=== PATIENT | female | born 1950 | race Caucasian/White ===

== ENCOUNTER 2016-12-27 22:23 | Observation (INO) | payer OTHER, MEDICAID ==
[~2016-12-27] VITALS: Ht 165.1 cm; Wt 54.0 kg
[2016-12-27 22:30] VITALS: BP 136/60; PULSE 136; PULSE 77; RESP 22; RESP 60; TEMP 97.6; O2SAT 96
--- NOTE | 2016-12-27 22:53 | PD ---
HPI Chief Complaint: Numbness/Tingling Time Seen by Provider: 22:45 Travel History International Travel<30 days: No Contact w/Intl Traveler<30days: No Traveled to known affect area: No History of Present Illness HPI 66-year-old female presents to the emergency department by police transport from custodial where she reportedly complained of left arm numbness and request an aspirin. Patient states she's in the process of being evaluated for left arm numbness. Patient states she is being followed by Dr. Geiger who is evaluating her for chronic neck pain with referred pain to the left upper extremity. Patient is been told she has significant degenerative disc disease. Patient also has been followed by Dr. Schuler he just finished doing and a Holter on her that was reportedly normal she reportedly saw her network programmer this morning he is in the process of evaluating her as well for this nonspecific left upper extremity tingling and numbness. Patient states while she was at the custodial she noticed a recurrence of this numbness in her arm so she decided to aspirin aspirin. Patient states she also has some chest tightness that she rates as 5/10 in intensity. Patient denies fever chills nausea vomiting shortness breath sweats referred neck jaw back or abdominal pain. Patient is not experiencing a left upper extremity pain. Patient states she has not felt well for the past year and does have history of tobaccoism but denies hypertension dyslipidemia diabetes or known cardiac disease. Patient admits to drinking 3 alcoholic beverages prior to arrival to the emergency department. PFSH Past Medical History Narrative Medical Chest pain, cervical spine disc disease with left upper extremity paresthesia, tobaccoism, alcohol use, skin cancer excision right knee; nursing notes reviewed Cancer: Yes (skin cancer (knee)) Chest Pain: Yes ?: Not Social History Alcohol Use: Yes Tobacco Use: Yes Substance Use: No Allergies-Medications (Allergen,Severity, Reaction): Coded Allergies: No Known Allergies (Unverified , 12/27/16) Comments No known drug allergies although pain pills that she cannot identify cause nausea and vomiting Narrative Medication Aspirin as needed Review of Systems Except as stated in HPI: all other systems reviewed are Neg General / Constitutional: No: Fever, Chills Eyes: No: Visual changes HENT: No: Headaches, Neck Stiffness, Neck Pain Cardiovascular: Positive: Chest Pain or Discomfort (tightness 5/10 intensity), No: Palpitations, Diaphoresis, Syncope, Dyspnea on exertion, Edema Respiratory: No: Cough, Shortness of Breath, Wheezing Gastrointestinal: No: Nausea, Vomiting, Abdominal Pain Genitourinary: No: Hematuria, Flank Pain Musculoskeletal: No: Myalgias, Arthralgias, Limited ROM Skin: No Rash Neurologic: Positive: Paresthesia, No: Weakness, Dizziness, Syncope, Focal Abnormalities, Coordination Problem Psychiatric: No: Anxiety Endocrine: No: Heat Intolerance (times one month left upper extremity) Hematologic/Lymphatic: No: Easy Bruising Physical Exam Narrative GENERAL: Well-developed well-nourished female in no acute distress no respiratory distress SKIN: Warm and dry. HEAD: Atraumatic. Normocephalic. EYES: Pupils equal and round. No scleral icterus. No injection or drainage. ENT: No nasal bleeding or discharge. Mucous membranes pink and moist. NECK: Trachea midline. No JVD. CARDIOVASCULAR: Regular rate and rhythm. RESPIRATORY: No accessory muscle use. Clear to auscultation. Breath sounds equal bilaterally. GASTROINTESTINAL: Abdomen soft, non-tender, nondistended. Hepatic and splenic margins not palpable. MUSCULOSKELETAL: Extremities without clubbing, cyanosis, or edema. No obvious deformities. Radial pulses 2+ to palpation dorsalis pedis pulses 2+ to palpation NEUROLOGICAL: Awake and alert. No obvious cranial nerve deficits. Motor grossly within normal limits. Five out of 5 muscle strength in the arms and legs. Normal speech. PSYCHIATRIC: Appropriate mood and affect; insight and judgment normal. Data Data Last Documented VS Vital Signs Date Time Temp Pulse Resp B/P (MAP) Pulse Ox O2 Delivery O2 Flow Rate FiO2 12/27/16 22:34 96 Room Air 12/27/16 22:30 97.6 77 22 136/60 (85) Orders Orders Electrocardiogram (12/27/16 22:54) Basic Metabolic Panel (Bmp) (12/27/16 22:54) Ckmb (Isoenzyme) Profile (12/27/16 22:54) Complete Blood Count With Diff (12/27/16 22:54) Magnesium (Mg) (12/27/16 22:54) Prothrombin Time / Inr (Pt) (12/27/16 22:54) Act Partial Throm Time (Ptt) (12/27/16 22:54) Troponin I (12/27/16 22:54) Chest, Single Ap (12/27/16 22:54) Ecg Monitoring (12/27/16 22:54) Bilateral Bp Monitoring (12/27/16 22:54) Iv Access Insert/Monitor (12/27/16 22:54) Oximetry (12/27/16 22:54) Oxygen Administration (12/27/16 22:54) Aspirin Chew (Aspirin Chew) (12/27/16 23:00) Sodium Chloride 0.9% Flush (Ns Flush) (12/27/16 23:00) Nitroglycerin Sl (Nitrostat Sl) (12/27/16 23:00) Alcohol (Ethanol) (12/27/16 22:54) CKMB (12/27/16 23:00) CKMB% (12/27/16 23:00) Admit Order (Ed Use Only) (12/28/16 ) ^ Saline Lock (12/28/16 04:07) Resp Oxygen Quan C Titrat 1-4 L (12/28/16 ) Notify Dr: Other (12/28/16 04:07) Sodium Chloride 0.9% Flush (Ns Flush) (12/28/16 09:00) Sodium Chloride 0.9% Flush (Ns Flush) (12/28/16 04:15) Labs Laboratory Tests Test 12/27/16 23:00 White Blood Count 11.1 TH/MM3 Red Blood Count 4.56 MIL/MM3 Hemoglobin 13.9 GM/DL Hematocrit 41.5 % Mean Corpuscular Volume 91.0 FL Mean Corpuscular Hemoglobin 30.5 PG Mean Corpuscular Hemoglobin Concent 33.5 % Red Cell Distribution Width 14.0 % Platelet Count 326 TH/MM3 Mean Platelet Volume 7.8 FL Neutrophils (%) (Auto) 66.5 % Lymphocytes (%) (Auto) 26.3 % Monocytes (%) (Auto) 5.6 % Eosinophils (%) (Auto) 0.7 % Basophils (%) (Auto) 0.9 % Neutrophils # (Auto) 7.4 TH/MM3 Lymphocytes # (Auto) 2.9 TH/MM3 Monocytes # (Auto) 0.6 TH/MM3 Eosinophils # (Auto) 0.1 TH/MM3 Basophils # (Auto) 0.1 TH/MM3 CBC Comment DIFF FINAL Differential Comment Prothrombin Time 10.1 SEC Prothromb Time International Ratio 0.9 RATIO Activated Partial Thromboplast Time 25.0 SEC Blood Urea Nitrogen 8 MG/DL Creatinine 0.77 MG/DL Random Glucose 87 MG/DL Calcium Level 8.9 MG/DL Magnesium Level 2.1 MG/DL Sodium Level 129 MEQ/L Potassium Level 4.8 MEQ/L Chloride Level 98 MEQ/L Carbon Dioxide Level 21.1 MEQ/L Anion Gap 10 MEQ/L Estimat Glomerular Filtration Rate 75 ML/MIN Total Creatine Kinase 183 U/L Creatine Kinase MB 3.4 NG/ML Troponin I 0.07 NG/ML Ethyl Alcohol Level 165 MG/DL MDM Medical Decision Making Medical Screen Exam Complete: Yes Emergency Medical Condition: Yes Medical Record Reviewed: Yes Interpretation(s) EKG: Normal sinus rhythm rate of [address] segment elevation or injury pattern change noted Last Impressions Chest X-Ray 12/27/16 8017 Signed Impressions: Service Date/Time: Tuesday, December 27, 2016 22:58 - CONCLUSION: No acute disease. Alfred Reyes Jr., MD CBC & BMP Diagram 12/27/16 23:00 Calcium Level 8.9, Magnesium Level 2.1 Vital Signs Date Time Temp Pulse Resp B/P (MAP) Pulse Ox O2 Delivery O2 Flow Rate FiO2 12/27/16 22:34 96 Room Air 12/27/16 22:30 97.6 77 22 136/60 (85) 96 Vital Signs Date Time Temp Pulse Resp B/P (MAP) Pulse Ox O2 Delivery O2 Flow Rate FiO2 12/27/16 22:34 96 Room Air 12/27/16 22:30 97.6 77 22 136/60 (85) 96 troponin i: 0.07, ELEAVTED Differential Diagnosis Chest pain, ACS, MS, cervical radiculopathy, TIA, CVA Narrative Course EKG performed sinus rhythm rate [address] elevation or injury pattern change or ectopy noted; patient placed on monitoring manager; IV access obtained; patient administered aspirin 162 mg times one dose and sublingual nitroglycerin 0.4mg to be administered every 5 minutes as needed for ongoing chest tightness to be held for chest pain-free or systolic blood pressure greater than or equal to 100 mmHg cHEST PAIN FREE AFTERT NITRO X 1 TROPNIN i : ELEVATED 0.07 Patient remains chest pain-free call placed to [facility] BP call placed to have [facility] service Discussed with Dr Mcqueen --admitted once to med/surg floor Physician Communication Physician Communication CALL placed to [facility] service accepted by Dr Mcqueen OBS to M/S floor Diagnosis Primary Impression: Chest pain Additional Impressions: Elevated troponin I level Alcohol ingestion Admitting Information Admitting Physician Requests: Observation Peyton Merchant MD Dec 27, 2016 22:53
[2016-12-27] MEDS ORDERED: SODIUM CHLORIDE 0.9% FLUSH 10 ML FLUSH IVF PRN (23:00)
[2016-12-27] MEDS ORDERED: ASPIRIN 81 MG CHEW TAB PO ONE (23:00)
[2016-12-27 23:15] LABS: AUTOMATED NEUTROPHIL # 7.4 TH/MM3 (1.8-7.7); BASOPHIL # 0.1 TH/MM3 (0-0.2); BASOPHIL % 0.9 % (0.0-2.0); EOSINOPHIL # 0.1 TH/MM3 (0-0.4); EOSINOPHIL % 0.7 % (0.0-4.0); HEMATOCRIT 41.5 % (35.0-46.0); HEMO FLAGS DIFF FINAL; LYMPH % 26.3 % (9.0-44.0); LYMPHOCYTE # 2.9 TH/MM3 (1.0-4.8); MEAN CORPUSCULAR HEMOGLOBIN 30.5 PG (27.0-34.0); MEAN CORPUSCULAR HGB CONC 33.5 % (32.0-36.0); MONO % 5.6 % (0.0-8.0); NEUT % 66.5 % (16.0-70.0); PLATELET COUNT 326 TH/MM3 (150-450); RED BLOOD COUNT 4.56 MIL/MM3 (4.00-5.30); WHITE BLOOD COUNT 11.1 TH/MM3 (4.0-11.0)
[2016-12-27] MEDS: NITROGLYCERIN 0.4 MG SL 25 TABS/BTL SL SCH ×3 (23:19→23:29)
--- NOTE | 2016-12-27 23:20 | RADRPT ---
EXAM DATE/TIME: 12/27/2016 22:58 [facility] COMPARISON: No previous studies available for comparison. INDICATIONS : Chest pain. Cough. MEDICAL HISTORY : None. SURGICAL HISTORY : None. ENCOUNTER: Initial ACUITY: 1 day PAIN SCORE: 04/18 LOCATION: Bilateral chest FINDINGS: A single view of the chest demonstrates the lungs to be symmetrically aerated without evidence of mas s, infiltrate or effusion. The cardiomediastinal contours are unremarkable. Osseous structures are intact. CONCLUSION: No acute disease. Alfred Reyes Jr., MD on December 27, 2016 at 23:19 Board Certified Radiologist. This report was verified electronically.
[2016-12-27 23:42] LABS: ANION GAP 10 MEQ/L (5-15); BICARBONATE 21.1 MEQ/L (21.0-32.0); BLOOD UREA NITROGEN 8 MG/DL (7-18); CHLORIDE 98 MEQ/L (98-107); CREATINE KINASE 183 U/L (26-192); GLOMERULAR FILTRATION RATE 75 ML/MIN (>89); MAGNESIUM 2.1 MG/DL (1.5-2.5); POTASSIUM 4.8 MEQ/L (3.5-5.1); SODIUM (NA) 129 MEQ/L (136-145)
[2016-12-27 23:43] LABS: ALCOHOL 165 MG/DL (0-5)
[2016-12-27 23:56] LABS: CKMB 3.4 NG/ML (0.5-3.6)
[2016-12-28 00:02] LABS: INTERNATIONAL NORMALIZED RATIO 0.9 RATIO; PROTHROMBIN TIME - PATIENT 10.1 SEC (9.8-11.6)
[2016-12-28] MEDS ORDERED: NALOXONE HCL 0.4 MG/ML AMP IV PUSH PRN (04:15)
[2016-12-28] MEDS ORDERED: SODIUM CHLORIDE 0.9% FLUSH 10 ML FLUSH IVF PRN (04:15)
[2016-12-28] MEDS ORDERED: SODIUM CHLORIDE 0.9% FLUSH 10 ML FLUSH IV FLUSH PRN (04:15)
[2016-12-28] MEDS ORDERED: LORazepam 2 MG TAB PO PRN (04:30)
[2016-12-28] MEDS ORDERED: FLUMAZENIL 0.5 MG/5 ML VIAL IV PUSH PRN (04:30)
[2016-12-28] MEDS ORDERED: LORazepam 1 MG TAB PO PRN (04:30)
[2016-12-28] MEDS ORDERED: LORazepam 2 MG/ML VIAL IV PUSH PRN ×4 (04:30)
[2016-12-28] MEDS ORDERED: ENOXAPARIN SODIUM 60 MG/0.6 ML SYRINGE SQ ONE (04:30)
[2016-12-28] MEDS ORDERED: ENOXAPARIN SODIUM 40 MG/0.4 ML SYRINGE SQ SCH (05:00)
[2016-12-28 05:08] VITALS: O2SAT 96
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
--- NOTE | 2016-12-28 07:29 | RADRPT ---
EXAM DATE/TIME: 12/28/2016 07:07 [facility] COMPARISON: No previous studies available for comparison. INDICATIONS : Patient fell RADIATION DOSE: 56.35 CTDIvol (mGy) MEDICAL HISTORY : None SURGICAL HISTORY : None. ENCOUNTER: Initial ACUITY: 1 day PAIN SCALE: 0/10 LOCATION: cranial TECHNIQUE: Multiple contiguous axial images were obtained of the head. Using automated exposure control and adj ustment of the mA and/or kV according to patient size, radiation dose was kept as low as reasonably a chievable to obtain optimal diagnostic quality images. DICOM format image data is available electro nically for review and comparison. FINDINGS: CEREBRUM: The ventricles are normal. No evidence of midline shift, mass lesion, hemorrhage or acute infarction . No extra-axial fluid collections are seen. POSTERIOR FOSSA: The cerebellum and brainstem are intact. The 4th ventricle is midline. The cerebellopontine angle i s unremarkable. EXTRACRANIAL: Visualized sinuses are clear. SKULL: The calvaria is intact. No evidence of skull fracture. CONCLUSION: Negative noncontrast head CT. No acute finding is present. Migue Camarena MD on December 28, 2016 at 7:26 Board Certified Radiologist. This report was verified electronically.
[2016-12-28 07:57] VITALS: BP 143/70; PULSE 77; RESP 17; TEMP 98.4; O2SAT 96
[2016-12-28] MEDS ORDERED: SODIUM CHLORIDE 0.9% FLUSH 10 ML FLUSH IV FLUSH SCH ×2 (09:00)
--- NOTE | 2016-12-28 09:19 | MB ---
cc: JAGDISH VERMA DATE OF CONSULTATION 12/28/2016 DATE OF 1950 REASON FOR CONSULTATION Chest pain HISTORY OF PRESENT ILLNESS The patient is a 66-year-old white female, followed in our office by Dr. Pj Schuler, with a history of COPD, squamous cell skin cancer who presented to the emergency room mainly with complaints of chest discomfort and left arm numbness. For at least the last several days, she has had fairly constant left upper chest pressure radiating to her left upper arm associated with numbness and tingling in her left upper extremity, particularly in the fingers. She has noted no definite diaphoresis or nausea, but has felt increased shortness of breath from baseline. She denies palpitations, pedal edema, paroxysmal nocturnal dyspnea. About a week ago when standing quickly from the sitting position, she did have a brief episode of syncope. At this time, she continues to have left upper chest discomfort described as "pressure" as well as continued left arm numbness and tingling. She was told recently that she had cervical spine disk disease and has been evaluated by Dr. Restrepo. PAST MEDICAL HISTORY As above. PAST SURGICAL HISTORY section. CARDIAC MEDICATIONS AT HOME None ALLERGIES NO KNOWN DRUG ALLERGIES. FAMILY HISTORY There is no significant family history of early myocardial infarction. SOCIAL HISTORY The patient smokes cigarettes. She drinks alcohol occasionally. REVIEW OF SYSTEMS As in the history of present illness, otherwise negative or noncontributory. She also denies headache, melena, bright red blood per rectum, dyspepsia, or pleurisy. PHYSICAL EXAMINATION VITAL SIGNS: Blood pressure 143/70 with a pulse of 77, respirations 17. GENERAL: She is a well-developed, well-nourished white female in no acute distress. HEENT: On examination, jugular venous pressure is normal. Carotid pulses are 2+ bilaterally and without bruits. CHEST: Examination of the chest reveals a few scattered rhonchi. CARDIAC: On cardiac examination, she has a regular rhythm and rate without S3, S4 or murmur. ABDOMEN: On abdominal examination, she has a soft, nontender abdomen. Bowel sounds are present. There is no definite hepatosplenomegaly. EXTREMITIES: Examination of extremities reveals no clubbing, cyanosis or edema. LABORATORY DATA Includes WBC 11.1, hemoglobin 13.9, platelets 326. Sodium 129, potassium 4.8, BUN 8, creatinine 0.77, troponin 0.07. Chest x-ray shows no acute disease. EKG from 12/28/2016 at 06:17 a.m. shows sinus rhythm, nonspecific anterior T-wave abnormality. IMPRESSION Extremely atypical symptoms for myocardial ischemia in a 66-year-old white female with a history of COPD. Despite prolonged chest discomfort for the past several days, her CK levels are negative for myocardial infarction. I doubt the slightly elevated troponin levels are due to acute coronary syndrome. EKG shows nonspecific changes. She did have a normal nuclear stress test about a week ago. Clinical suspicion for pulmonary embolism is low. RECOMMENDATIONS 1. No additional cardiac workup at this time. 2. Should she need cervical spine surgery, she is cleared from a cardiac standpoint to undergo surgery. 3. We will follow up as needed. MD NAYELY Guerra/DIETER /9:00 AM /9:09 AM MTDMariana
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
--- NOTE | 2016-12-28 17:09 | EKG ---
Date Performed: 12/28/2016 Time Performed: 06:17:24 PTAGE: 66 years EKG: Sinus rhythm MODERATE T-WAVE ABNORMALITY, CONSIDER ANTERIOR ISCHEMIA ABNORMAL ECG Compared to the PREVIOUS TRACING from 12/27/16, no significant change DOCTOR: Marcos Bolden Interpretating Date/Time 12/28/2016 17:08:25
--- NOTE | 2016-12-28 17:22 | EKG ---
Date Performed: 12/27/2016 Time Performed: 22:40:51 PTAGE: 66 years EKG: Sinus rhythm NORMAL ECG NO PREVIOUS TRACING DOCTOR: Marcos Bolden Interpretating Date/Time 12/28/2016 17:21:24
[2016-12-29] MEDS ORDERED: ENOXAPARIN SODIUM 40 MG/0.4 ML SYRINGE SQ SCH (05:00)
== END 2016-12-28 11:03 | disposition home or self-care (01) ==
LOC: NEPC 22:23 → NEDA 12-28 04:09 → NEPGCP 12-28 07:42
PROVIDERS: ADMIT Hospitalist; ATTEND Hospitalist
DX: R07.89 Other chest pain (principal); R74.8 Abnormal levels of other serum enzymes; R55 Syncope and collapse; R42 Dizziness and giddiness; R11.0 Nausea; S40.021A Contusion of right upper arm, initial encounter; W19.XXXA Unspecified fall, initial encounter; Y04.0XXA Assault by unarmed brawl or fight, initial encounter; J44.9 Chronic obstructive pulmonary disease, unspecified; F17.210 Nicotine dependence, cigarettes, uncomplicated
CPT/HCPCS: 70450; 71010; 73130; 80048; 80307; 82550; 82552; 83735; 84484; 85025; 85610; 85730; 93005; 99285; G0378